=== PATIENT | male | born 1990 | race Caucasian/White ===

== ENCOUNTER 2022-03-01 19:27 | Emergency (ER) | payer OTHER ==
[~2022-03-01] VITALS: Ht 185.4 cm; Wt 88.0 kg
[2022-03-01] MEDS ORDERED: DEXAMETHASONE 4MG TABLET PO ONE (21:45)
[2022-03-01] MEDS ORDERED: PENICILLIN G BENZATHINE 2,400,000 UNITS/4ML SYR IM ONE (21:45)
[2022-03-01] MEDS ORDERED: IBUPROFEN 600MG TABLET PO ONE (21:45)
[2022-03-01] MEDS ORDERED: IBUP-2029 MT (22:00)
[2022-03-01] MEDS ORDERED: VALA100044 MT (22:00)
[2022-03-01 22:07] VITALS: BP 119/80
[2022-03-04 19:06] LABS: NEISSERIA GONORRHOEAE NAA Negative (Negative)
== END 2022-03-01 22:40 | disposition home or self-care (01) ==
LOC: ER 19:27
DX: R07.0 Pain in throat (principal); Z90.49 Acquired absence of other specified parts of digestive tract; Z98.890 Other specified postprocedural states; Z20.2 Contact with and (suspected) exposure to infections with a predominantly sexual mode of transmission
CPT/HCPCS: 87491; 87591; 96372; 99283; J0561; J8540

== ENCOUNTER 2023-03-12 15:56 | Emergency (ER) | payer MEDICAID, OTHER ==
[~2023-03-12] VITALS: Ht 185.4 cm; Wt 86.0 kg
[~2023-03-12 15:56] MED LIST: IBUP-2029 MT; VALA100044 MT
[2023-03-12 16:05] VITALS: BP 150/98
[2023-03-12] MEDS ORDERED: CEFTRIAXONE SODIUM 500 MG/VIAL IM ONE (16:30)
[2023-03-12] MEDS ORDERED: LIDOCAINE HCL 1% 20ML VIAL (Pyxis) INJ INFIL ONE (16:30)
[2023-03-12] MEDS ORDERED: DOXY100C5 MT (16:36)
[2023-03-12 16:49] LABS: CLARITY URINE CLEAR (CLEAR); COLOR URINE YELLOW (YELLOW); KETONES URINE NEGATIVE (NEGATIVE); LEUKOCYTE ESTERASE URINE 3+ (NEGATIVE); NITRITE URINE NEGATIVE (NEGATIVE); OCCULT BLOOD URINE NEGATIVE (NEGATIVE); PH URINE 5.5 (4.5-8.0); PROTEIN URINE NEGATIVE (NEGATIVE); SPECIFIC GRAVITY URINE 1.019 (1.005-1.030); UROBILINOGEN URINE 0.2 E.U./dL (0.2-1.0)
[2023-03-15 04:07] LABS: NEISSERIA GONORRHOEAE NAA Positive (Negative)
== END 2023-03-12 17:28 | disposition home or self-care (01) ==
LOC: ER 15:56
DX: R36.9 Urethral discharge, unspecified (principal); Z90.49 Acquired absence of other specified parts of digestive tract; Z98.890 Other specified postprocedural states
CPT/HCPCS: 81003; 87077; 87086; 87491; 87591; 96372; 99283; J0696; J3490